=== PATIENT | female | born 1985 | race Caucasian/White ===

== ENCOUNTER 2017-11-23 09:03 | Emergency (ER) | payer OTHER, MEDICAID ==
[2017-11-23] MEDS: KETOROLAC 60 MG INJ IM (10:21)
== END 2017-11-23 11:42 | disposition home or self-care (01) ==
LOC: FTE 09:03
DX: M79.672 Pain in left foot (principal)
CPT/HCPCS: 73630; 73630-LT; 81025; 82962; 96372; 99284-25

== ENCOUNTER 2018-10-05 19:44 | Emergency (ER) | payer OTHER | END 2018-10-05 21:08 | disposition home or self-care (01) | LOC: FTE 19:44 | DX: H66.92 Otitis media, unspecified, left ear (principal) | CPT/HCPCS: 99283; Z7502 ==